=== PATIENT | male | born 1985 | race Caucasian/White ===

== ENCOUNTER 2018-07-19 07:50 | Day surgery (SDC) | payer BC ==
--- NOTE | 2018-07-19 07:56 | PDOC ---
History of Present Illness - General Chief Complaint: Pain Stated Complaint: BACK/ABD PAIN Time Seen by Provider: 07/19/18 07:55 History Source: Patient Exam Limitations: No Limitations - History of Present Illness Initial Comments: 33 yo M no significant PMH presents with 8 hours of abdominal discomfort, now radiating to L low back. No dysuria, hematuria, diarrhea, fever, vomiting. He was nauseous this morning, not at present. Pain started at a 3/10, increased to 8/10. He took tylenol without relief. He initially thought his pain was due to gas, but after passing gas and stool, still felt the pain. No prior similar history. No prior abdominal surgeries. Past History - Past Medical History Allergies/Adverse Reactions: Allergies Allergy/AdvReac Type Severity Reaction Status Date / Time No Known Allergies Allergy Verified 07/19/18 07:51 Home Medications: Ambulatory Orders Acetaminophen [Tylenol -] 1,000 mg PO ONCE PRN 07/19/18 Review of Systems - Review of Systems Able to Perform ROS?: Yes Comments:: GENERAL/CONSTITUTIONAL: No fever or chills. No weakness. HEAD, EYES, EARS, NOSE AND THROAT: No change in vision. No ear pain or discharge. No sore throat. CARDIOVASCULAR: No chest pain or shortness of breath. RESPIRATORY: No cough, wheezing, or hemoptysis. GASTROINTESTINAL: No vomiting, diarrhea or constipation. +Nausea. +Abd pain. GENITOURINARY: No dysuria, frequency, or change in urination. MUSCULOSKELETAL: No joint or muscle swelling or pain. No neck or back pain. SKIN: No rash NEUROLOGIC: No headache, vertigo, loss of consciousness, or change in strength/ sensation. ENDOCRINE: No increased thirst. No abnormal weight change. HEMATOLOGIC/LYMPHATIC: No anemia, easy bleeding, or history of blood clots. ALLERGIC/IMMUNOLOGIC: No hives or skin allergy. *Physical Exam - Physical Exam Comments: GENERAL: Awake, alert, and fully oriented, in no acute distress. Appears uncomfortable. HEAD: No signs of trauma EYES: PERRLA, EOMI, sclera anicteric, conjunctiva clear ENT: Auricles normal inspection, hearing grossly normal, nares patent, oropharynx clear without exudates. Dry mucosa NECK: Normal ROM, supple, no lymphadenopathy, JVD, or masses LUNGS: Breath sounds equal, clear to auscultation bilaterally. No wheezes, and no crackles HEART: Regular rate and rhythm, normal S1 and S2, no murmurs, rubs or gallops ABDOMEN: Soft, +RLQ tenderness, normoactive bowel sounds. No guarding, no rebound. No masses EXTREMITIES: Normal range of motion, no edema. No clubbing or cyanosis. No cords, erythema, or tenderness NEUROLOGICAL: Cranial nerves II through XII grossly intact. Normal speech, normal gait SKIN: Warm, Dry, normal turgor, no rashes or lesions noted. ED Treatment Course - LABORATORY CBC & Chemistry Diagram: 07/19/18 08:51 07/19/18 08:51 Medical Decision Making - Medical Decision Making 07/19/18 08:51 Pt with abd pain for past 8 hours, progressively worsening. With RLQ tenderness on exam. He took tylenol prior to arrival, declined additional pain meds. Also declined zofran, as he is not currently nauseated. Will await labs then plan for CT a/p. 07/19/18 12:46 CT with signs of acute appendicitis. Will d/w surgery field service consultant Dr. Bernard. 07/19/18 12:53 Case d/w Dr. Blanco, covering general surgery today. Will transfer to [facility] as there is no OR staff at [facility] today (weekend). Will keep patient NPO, start Zosyn, and give IV fluids. Will d/w hospitalist. Results and plan discussed with patient. He declined any pain medication at this point. 07/19/18 13:01 D/w SOLDERING INSPECTOR Sgroe, patient accepted to hospitalist service. *DC/Admit/Observation/Transfer Diagnosis at time of Disposition: Appendicitis Qualifiers: Appendicitis type: acute appendicitis Acute appendicitis type: unspecified acute appendicitis type Qualified Code(s): K35.80 - Unspecified acute appendicitis - Discharge Dispostion Condition at time of disposition: Stable Decision to Admit order: Yes - Referrals - Patient Instructions - Post Discharge Activity
[2018-07-19] MEDS ORDERED: SODIUM CHLORIDE 1,000 ML IV STA (08:03)
[2018-07-19 08:09] VITALS: BMI 22.3
[2018-07-19 08:41] LABS: PH,URINE 5.5 (4.5-8); URINE APPEARANCE Clear; URINE BILIRUBIN 1+ (NEGATIVE); URINE COLOR Amber; URINE GLUCOSE (UA) Negative (NEGATIVE); URINE KETONE Negative (NEGATIVE); URINE LEUK ESTERASE Negative (NEGATIVE); URINE NITRITE Negative (NEGATIVE); URINE UROBILINOGEN 0.2 (0.2-1.0)
[2018-07-19 08:42] LABS: URINE PROTEIN 1+ (NEGATIVE)
[2018-07-19 08:56] LABS: URINE WBC 0-1 (0-2)
[2018-07-19] MEDS ORDERED: FAMOTIDINE 20 MG/50 ML IVPB 20 MG/50 ML MG IVPB ONE ×2 (08:59→09:45)
[2018-07-19] MEDS ORDERED: FAMOTIDINE 20 MG/50 ML IVPB 50 ML IVPB ONE (09:01)
[2018-07-19 09:12] LABS: BASO % 0.2 % (0-2.0); EOS % 0.8 % (0-4.5); HEMATOCRIT 40.8 % (35.4-49); LYMPH % 5.5 % (8-40); MCH 30.4 pg (25.7-33.7); MCHC 34.4 g/dl (32.0-35.9); MEAN CELL VOLUME 88.5 fl (80-96); MEAN PLT VOLUME 8.6 fl (7.5-11.1); MONO % 6.5 % (3.8-10.2); PLATELET COUNT 236 K/MM3 (134-434); RBC 4.61 M/mm3 (4.00-5.60); RDW 11.5 % (11.9-15.9); WHITE BLOOD COUNT 11.4 K/mm3 (4.0-10.8)
[2018-07-19 09:20] LABS: ALBUMIN 4.3 g/dl (3.5-5.0); ALK PHOS 71 U/L (32-92); ANION GAP 8 MMOL/L (8-16); BILIRUBIN,TOTAL 1.6 mg/dl (0.2-1.0); BLOOD UREA NITROGEN 13 mg/dl (7-18); CHLORIDE 102 mmol/L (98-107); CO2 26 mmol/L (22-28); CREATININE 0.6 mg/dl (0.6-1.3); GLUCOSE,RANDOM 110 mg/dl (74-106); POTASSIUM 3.9 mmol/L (3.5-5.1); SGOT/AST 34 U/L (10-42); SGPT/ALT 34 U/L (10-40); SODIUM 136 mmol/L (136-145); TOT PROT 6.8 g/dl (6.4-8.3)
[2018-07-19 11:11] LABS: LIPASE 135 U/L (73-393)
[2018-07-19] MEDS ORDERED: PIPERACILLIN/TAZOB 3.375 GM 3.375 GM in DEXTROSE 5%-WATER - 50 ML IVPB ONE (12:52)
--- NOTE | 2018-07-19 12:59 | PN ---
Progress Note (short form) - Note Progress Note: surgery called by [facility] for acute appendicitis. booked surgery with [facility] nursing forming and assembling supervisor. I awaiting transfer of patient to [facility] since [facility] has no weekend surgery capability and awaiting OR availability at [facility]. I have requested to do the surgery as soon as possible.
[2018-07-19] MEDS ORDERED: SODIUM CHLORIDE 1,000 ML IV SCH ×3 (13:00→17:00)
[2018-07-19] MEDS ORDERED: PIPERACILLIN/TAZOBACTAM 3.375 GM VIAL IVPB ONE ×2 (13:56→21:16)
--- NOTE | 2018-07-19 14:28 | HP ---
CHIEF COMPLAINT: Abdominal pain and nausea PCP: Dr. Acosta HISTORY OF PRESENT ILLNESS: This is a 33 year old male with PMHx of borderline HTN who presented to the ED with abdominal pain and nausea since last night. The patient reports he ate dinner last night then around 10pm he began to have lower abdominal pain which then migrated to his back and then to his RLQ. He reports nausea but denies vomiting. He denies any diarrhea but reports soft stools. He denies any chest pain, shortness of breath, headache, dizziness, syncope, lower extremity edema/ weakness. ER course was notable for: (1) Temp 98.4, pulse 62, BP 155/91, resp 20, O2 99% on RA (2) WBC 11.4 (3) CTAP with acute appendicitis. No discrete abscess seen Recent Travel: denies PAST MEDICAL HISTORY: "borderline high blood pressure" PAST SURGICAL HISTORY: fractured left arm (age 7) Social History: Smoking: denies Alcohol: 1-2 glasses of wine 1-2 times per week Drugs: denies Family History: Allergies No Known Allergies Allergy (Verified 07/19/18 07:51) HOME MEDICATIONS: Home Medications Medication Instructions Recorded Acetaminophen [Tylenol -] 1,000 mg PO ONCE PRN 07/19/18 REVIEW OF SYSTEMS CONSTITUTIONAL: Absent: fever, chills, diaphoresis, generalized weakness, malaise, loss of appetite, weight change HEENT: Absent: rhinorrhea, nasal congestion, throat pain, throat swelling, difficulty swallowing, mouth swelling, ear pain, eye pain, visual changes CARDIOVASCULAR: Absent: chest pain, syncope, palpitations, irregular heart rate, lightheadedness , peripheral edema RESPIRATORY: Absent: cough, shortness of breath, dyspnea with exertion, orthopnea, wheezing, stridor, hemoptysis GASTROINTESTINAL: Lower abdominal pain that migrated overnight to RLQ with associated nausea. Absent: abdominal distension, vomiting, diarrhea, constipation, melena, hematochezia GENITOURINARY: Absent: dysuria, frequency, urgency, hesitancy, hematuria, flank pain, genital pain MUSCULOSKELETAL: Absent: myalgia, arthralgia, joint swelling, back pain, neck pain SKIN: Absent: rash, itching, pallor HEMATOLOGIC/IMMUNOLOGIC: Absent: easy bleeding, easy bruising, lymphadenopathy, frequent infections ENDOCRINE: Absent: unexplained weight gain, unexplained weight loss, heat intolerance, cold intolerance NEUROLOGIC: Absent: headache, focal weakness or paresthesias, dizziness, unsteady gait, seizure, mental status changes, bladder or bowel incontinence PSYCHIATRIC: Absent: anxiety, depression, suicidal or homicidal ideation, hallucinations. PHYSICAL EXAMINATION Vital Signs - 24 hr 07/19/18 07:51 Temperature 98.4 F Pulse Rate 62 Respiratory 20 Rate Blood Pressure 155/91 O2 Sat by Pulse 99 Oximetry (%) GENERAL: Awake, alert, and fully oriented, in no acute distress. HEAD: Normal with no signs of trauma. EYES: Pupils equal, round and reactive to light, extraocular movements intact, sclera anicteric, conjunctiva clear. No lid lag. EARS, NOSE, THROAT: Ears normal, nares patent, oropharynx clear without exudates. Moist mucous membranes. NECK: Normal range of motion, supple without lymphadenopathy, JVD, or masses. LUNGS: Breath sounds equal, clear to auscultation bilaterally. No wheezes, and no crackles. No accessory muscle use. HEART: Regular rate and rhythm, normal S1 and S2 without murmur, rub or gallop. ABDOMEN: + RLQ rebound tenderness. Soft, nontender, not distended, normoactive bowel sounds MUSCULOSKELETAL: Normal range of motion at all joints. No bony deformities or tenderness. No CVA tenderness. UPPER EXTREMITIES: 2+ pulses, warm, well-perfused. No cyanosis. No clubbing. No peripheral edema. LOWER EXTREMITIES: 2+ pulses, warm, well-perfused. No calf tenderness. No peripheral edema. NEUROLOGICAL: Cranial nerves II-XII intact. Normal speech. Gait not observed PSYCHIATRIC: Cooperative. Good eye contact. Appropriate mood and affect. SKIN: Warm, dry, normal turgor, no rashes or lesions noted, normal capillary refill. Laboratory Results - last 24 hr 07/19/18 07/19/18 07/19/18 08:15 08:51 08:51 WBC 11.4 H RBC 4.61 Hgb 14.0 Hct 40.8 MCV 88.5 MCH 30.4 MCHC 34.4 RDW 11.5 L Plt Count 236 MPV 8.6 Absolute Neuts (auto) 10.0 Neutrophils % 87.0 H Lymphocytes % 5.5 L Monocytes % 6.5 Eosinophils % 0.8 Basophils % 0.2 Sodium 136 Potassium 3.9 Chloride 102 Carbon Dioxide 26 Anion Gap 8 BUN 13 Creatinine 0.6 Creat Clearance w eGFR > 60 Random Glucose 110 H Calcium 9.0 Total Bilirubin 1.6 H AST 34 ALT 34 Alkaline Phosphatase 71 Total Protein 6.8 Albumin 4.3 Lipase 135 Urine Color Nikky Urine Appearance Clear Urine pH 5.5 Ur Specific [place] >= 1.030 H Urine Protein 1+ H Urine Glucose (UA) Negative Urine Ketones Negative Urine Blood 2+ H Urine Nitrite Negative Urine Bilirubin 1+ H Urine Urobilinogen 0.2 Ur Leukocyte Esterase Negative Urine RBC 5-8 Urine WBC 0-1 Assessment: This is a 33 year old male with PMHx of borderline HTN who presented to the ED with abdominal pain and nausea since last night. Plan: 1) Acute appendicitis - For OR today with Dr. Blanco - Awaiting transfer to [facility] - Morphine prn pain - IV fluids - Keep NPO: patient's last food was dinner last night - Received Zosyn in ED - F/u surgical consult 2) HTN - Patient reports hx of borderline HTN, but not on home medications. BP here above goal, however it may be elevated 2/2 pain. Will continue to monitor here, patient should follow-up with pcp upon discharge for further BP management 3) F/E/N: - NPO - IV fluids: NS @125/hr 4) Prophylaxis: - SCDs bilaterally - Hold all chemical DVT prophylaxis for surgery today 5) Dispo: - Patient likely for discharge after surgery CODE STATUS: FULL CODE Visit type - Emergency Visit Emergency Visit: Yes Care time: The patient presented to the Emergency Department on the above date and was hospitalized for further evaluation of their emergent condition. - New Patient This patient is new to me today: Yes Date on this admission: 07/19/18 - Critical Care Critical Care patient: No Hospitalist Screening - Colonoscopy Questionnaire Colonoscopy Questionnaire: Colonoscopy Questionnaire - Patient: 50 - 75 years old and never had a screening colonoscopy: No History of colon or rectal polyps, or CA: No History of IBD, Crohn's disease or UC: No History of abdominal radiation therapy as a child: No - Relative: 1 with colon or rectal CA, or polyps at age 60 or younger: Unknown Colon or rectal CA diagnosed at age 45 or younger: Unknown Multiple relatives with colon or rectal CA: Unknown - Outcome: Screening Result: Negative Screen
[2018-07-19 14:37] LABS: INR 1.19 (0.82-1.09); PROTHROMBIN TIME (PATIENT) 13.3 SEC (10.2-13.0)
[2018-07-19] MEDS ORDERED: ACETAMINOPHEN 1000 MG/100 ML VIAL (NON FORMULARY) IVPB ONE (15:13)
[2018-07-19] MEDS ORDERED: BUPIVACAINE HCL/PF 0.25% (2.5MG/ML) 10 ML VIAL ONE ×2 (15:35→15:36)
--- NOTE | 2018-07-19 16:52 | PN ---
Progress Note (short form) - Note Progress Note: surgery pt seen and examined now in [facility]. complains of less than one day right flank pain without vomiting. wbc elevated and ct shows retrocecal acute appendicitis. on exam mild rlq tenderness with right flank tenderness. 2+ blood in urine. Plan- 33m with abd pain, leukocytosis, rlq and flank tenderness, and ct showing acute appendicitis. I agree with admission. for surgery now.
[2018-07-19] MEDS ORDERED: PROPOFOL 20 ML ONE (16:53)
[2018-07-19] MEDS ORDERED: SUCCINYLCHOLINE CHLORIDE 200 MG/10 ML VIAL ONE (16:53)
[2018-07-19] MEDS ORDERED: fentaNYL CITRATE 250 MCG/5 ML VIAL ONE (16:53)
[2018-07-19] MEDS ORDERED: LIDOCAINE HCL/PF 2% SDV 5ML VIAL ONE (16:53)
[2018-07-19] MEDS ORDERED: ROCURONIUM BROMIDE 50 MG/5 ML VIAL ONE ×2 (16:54→17:06)
[2018-07-19] MEDS ORDERED: morphine CARPU-JECT 10 MG/1 ML DISP.SYRIN IVPB PRN (16:57)
[2018-07-19] MEDS ORDERED: ACETAMINOPHEN 325 MG TABLET (FP) PO PRN (16:57)
[2018-07-19] MEDS ORDERED: oxyCODONE HCL 5 MG TABLET PO PRN ×2 (16:57→17:48)
[2018-07-19] MEDS ORDERED: ONDANSETRON 4 MG/2 ML VIAL IVPUSH PRN ×2 (16:57→17:48)
--- NOTE | 2018-07-19 17:00 | OP ---
Operative Note - Note: Operative Date: 07/19/18 Pre-Operative Diagnosis: acute appendicitis Operation: laparoscopic appedectomy, lavage Findings: thickened,inflamed appendix Post-Operative Diagnosis: Same as Pre-op Surgeon: Rico Blanco Anesthesiologist/CINEMA OPERATOR: Rico Menendez Anesthesia: General Specimens Removed: appendix Estimated Blood Loss (mls): 10 Operative Report Dictated: Yes
[2018-07-19] MEDS ORDERED: GLYCOPYRROLATE 0.2 MG/1 ML VIAL ONE ×3 (17:32→18:23)
[2018-07-19] MEDS ORDERED: NEOSTIGMINE METHYLSULFATE 0.5 MG/ML - 10 ML MDV ONE (17:32)
--- NOTE | 2018-07-19 17:39 | CONS ---
DATE OF CONSULTATION: 07/19/2018 REASON FOR CONSULTATION: Acute appendicitis. REQUESTING PHYSICIAN: This is an emergency room consultation requested by the emergency room physician. The patient was subsequently seen and examined in the surgery holding area. BRIEF HISTORY: This is a 33-year-old male without a significant past medical history who presented to the [facility] emergency room complaining of less than one day of lower abdominal and flank pain. While there, he was noted to have right lower quadrant tenderness with an elevated white blood cell count. He went for a CAT scan of his abdomen and pelvis which was consistent with acute appendicitis. The appendix was noted to be in the retrocecal position. The patient was admitted to the hospital. I was notified and recommended surgery. The patient was then transferred to the [facility] because there is no operating room capability on weekends at [facility]. As soon as an operating room became available, he was seen and examined by me and prepared for surgery. PAST MEDICAL HISTORY: Significant for hypertension and anxiety that is not treated by medication. PAST SURGICAL HISTORY: Distant arm fracture surgery without complication. SOCIAL HISTORY: Positive for occasional alcohol consumption; negative for tobacco. FAMILY HISTORY: Negative for malignancy in the immediate family. ALLERGIES: He has no known drug allergies. HOME MEDICATIONS: He takes no medications. REVIEW OF SYSTEMS: General: Denies fatigue or malaise. Cardiac: Denies chest pain or palpitations. Respiratory: Denies shortness of breath or wheeze. Gastrointestinal: As stated in the HPI. Genitourinary: Denies dysuria. Musculoskeletal: Denies joint pain or joint swelling. Psychiatric: Denies depression or hearing voices. PHYSICAL EXAMINATION: General: This is a thin 33-year-old male in no distress. Vital signs: He is afebrile. His vital signs are stable. Head: Normocephalic. Sclerae anicteric. Neck: Supple. Chest: Clear. Abdomen: Soft. He has no surgical scars. His abdomen is not distended. He has mild right lower quadrant tenderness. He has right flank tenderness. Extremities: No edema. REVIEW OF LABORATORY DATA: His white blood cell count is elevated at 11.4. There is a shift. His chemistries are unremarkable. His total bilirubin is mildly elevated, consistent with his n.p.o. status. On review of his urinalysis, he has 2+ blood in his urine. IMAGING: He had a CAT scan of his abdomen and pelvis which is consistent with acute appendicitis with free fluid about the appendix. The appendix is described as a thick-walled, tubular structure that they described as being in the right lower quadrant but it appears to be retrocecal on my evaluation unofficially. ASSESSMENT: This is a 33-year-old male with right lower quadrant pain and tenderness, right flank tenderness, leukocytosis with a shift and a CAT scan showing acute appendicitis. Clinically, this is acute appendicitis. I agree with admission. I agree with dosing with antibiotic to cover for Escherichia coli and other gram negative as well as anaerobic and colonic bloa. The patient will move in the direction of surgery. The risks and benefits of surgery were explained to the patient in detail. These include but are not limited to the possibility of conversion to open, possible injury to viscera or bladder, the possibility of blood loss requiring blood transfusion, the possibility of staple line dehiscence, the possibility of infection, the possibility of suture hernia, the possibility of future obstruction. The multiple medical risks include but are not limited cardiac, neurologic, pulmonary and vascular complications and even . The patient understands these risks and is agreeable to surgery. He has also been offered medical management for his appendicitis and declined. He prefers the more definitive nature of surgery, the likely decreased length of stay, the ability to pathologically evaluate the appendix and to prevent future recurrence. The patient also mentions that he has a planned trip to [place] this week. I explained to him that he will be at increased risk of DVT and that the flight carries an increased risk of that as well. I advised him not to go. DO GERALDINE BETH/[id number]
[2018-07-19] MEDS ORDERED: PROMETHAZINE HCL 25 MG/1 ML VIAL IVPUSH PRN (17:48)
[2018-07-19] MEDS ORDERED: PIPERACILLIN/TAZOB 3.375 GM 3.375 GM in DEXTROSE 5%-WATER - 50 ML IVPB SCH (18:00)
[2018-07-19] MEDS ORDERED: LACTATED RINGERS SOLUTION 1,000 ML IV SCH (18:00)
[2018-07-19] MEDS ORDERED: DEXTROSE 5%-WATER - 50 ML IVPB ONE (21:16)
[2018-07-19] MEDS: PIPERACILLIN/TAZOB 3.375 GM 3.375 GM in DEXTROSE 5%-WATER - 50 ML IVPB SCH (21:55)
[2018-07-20] MEDS ORDERED: PIPERACILLIN/TAZOBACTAM 3.375 GM VIAL IVPB ONE ×2 (02:02→09:37)
[2018-07-20] MEDS ORDERED: DEXTROSE 5%-WATER - 50 ML IVPB ONE ×2 (02:03→09:37)
[2018-07-20] MEDS ORDERED: morphine SULFATE 4 MG/ML VIAL IVPB PRN (02:05)
[2018-07-20] MEDS: PIPERACILLIN/TAZOB 3.375 GM 3.375 GM in DEXTROSE 5%-WATER - 50 ML IVPB SCH ×2 (02:17→09:43)
[2018-07-20 07:46] LABS: HEMATOCRIT 35.9 % (35.4-49); HEMOGLOBIN 12.5 GM/dL (11.7-16.9); MCH 30.1 pg (25.7-33.7); MCHC 34.9 g/dl (32.0-35.9); MEAN CELL VOLUME 86.3 fl (80-96); MEAN PLT VOLUME 8.6 fl (7.5-11.1); PLATELET COUNT 206 K/MM3 (134-434); RBC 4.16 M/mm3 (4.00-5.60); RDW 12.6 % (11.9-15.9)
[2018-07-20 08:07] LABS: ALBUMIN 3.3 g/dl (3.4-5.0); ALK PHOS 62 U/L (45-117); ANION GAP 7 MMOL/L (8-16); BILIRUBIN,TOTAL 1.8 mg/dL (0.2-1.0); BLOOD UREA NITROGEN 6 mg/dL (7-18); CALCIUM 8.3 mg/dL (8.5-10.1); CHLORIDE 108 mmol/L (98-107); CO2 27 mmol/L (21-32); CREATININE 0.7 mg/dL (0.55-1.3); GLUCOSE,RANDOM 117 mg/dL (74-106); POTASSIUM 4.2 mmol/L (3.5-5.1); SGOT/AST 26 U/L (15-37); SGPT/ALT 31 U/L (13-61); SODIUM 142 mmol/L (136-145); TOT PROT 6.2 g/dl (6.4-8.2)
--- NOTE | 2018-07-20 08:19 | OP ---
DATE OF OPERATION: 07/19/2018 PREOPERATIVE DIAGNOSIS: Acute appendicitis. POSTOPERATIVE DIAGNOSIS: Acute appendicitis. PROCEDURE: Laparoscopic appendectomy and lavage. SURGEON: Rico Blanco DO NETWORK AND THREAT SUPPORT SPECIALIST: None. ANESTHESIOLOGIST: Rico Menendez MD (general) INTRAOPERATIVE FINDINGS: Retrocecal, inflamed, nonperforated appendix. SPECIMEN: Appendix. BLOOD LOSS: Minimal. DRAINS: None. COMPLICATIONS: None. DISPOSITION: Recovery room in stable condition. BRIEF HISTORY: This is a 33-year-old male who presented to [facility] with signs and symptoms of acute appendicitis. He was transferred to [facility] and presents now for surgery. He received Zosyn antibiotic in the emergency room. Woo catheter was inserted after anesthesia and the abdomen was then prepped and draped in sterile fashion. At this point, a vertical incision was made infraumbilical with a scalpel. This was carried down through skin and subcutaneous tissue. The fascia was then lifted with Angel clamp and incised vertically and the peritoneum was entered bluntly. Next, a 0 Vicryl stitch was placed across the fascial defect and used to secure the Son trocar. Pneumoperitoneum was then created, followed by insertion of a 5-mm, 30-degree laparoscope. Two 5-mm trocars were then placed, one suprapubic and one in the left lower quadrant. Attention was then turned toward the right lower quadrant. The cecum was identified. The appendix was noted to be retrocecal in nature. The ascending colon was mobilized off its lateral attachments as well as attachments of the terminal ileum. At this point, the appendix was teased off of its attachments to the lateral cecum. A window was made at the base of the appendix. The LigaSure device was used to divide the mesoappendix with multiple welds. The retroperitoneal attachments of the appendix were also divided. At this point, the EndoGIA purple load, 45-mm stapler was used to divide the appendix at its base in 1 firing. The staple line was inspected, was intact. There was no bleeding, no breaks, no signs of ischemia. The tissue appeared to be quite viable and able to hold the staple line. The appendix was then placed in a specimen bag, removed through the infraumbilical trocar site, and sent to pathology marked as specimen. At this point, a limited lavage was done; all return was clear. Trocars were removed under direct visualization and no bleeding was noted and pneumoperitoneum was released. At this point, the fascia at the infraumbilical trocar site was then closed with multiple interrupted 0 Vicryl sutures and the 3 skin incisions were closed with Biosyn and Dermabond dressing was placed. Overall, the patient tolerated the procedure well. There were no complications. Blood loss was minimal. DO GERALDINE BETH/[id number] MTDD
[2018-07-20] MEDS ORDERED: PANTOPRAZOLE SODIUM 40 MG VIAL IVPUSH SCH (10:00)
[2018-07-20] MEDS ORDERED: ENOXAPARIN NA (PORCINE) 40 MG/0.4 ML DISP.SYRIN SQ SCH (10:00)
[2018-07-20 11:25] VITALS: BP 115/67; PULSE 62; TEMP 98
--- NOTE | 2018-07-20 11:27 | DS ---
Physical Exam: Patient was discharged by surgery prior to evaluation. HOSPITAL COURSE: based upon EMR Date of Admission:07/19/18 Date of Discharge: 07/20/18 Pre hospital course This is a 33 year old male with PMHx of borderline HTN who presented to the ED with abdominal pain and nausea since last night. The patient reports he ate dinner last night then around 10pm he began to have lower abdominal pain which then migrated to his back and then to his RLQ. He reports nausea but denies vomiting. He denies any diarrhea but reports soft stools. He denies any chest pain, shortness of breath, headache, dizziness, syncope, lower extremity edema/ weakness. ER course was notable for: (1) Temp 98.4, pulse 62, BP 155/91, resp 20, O2 99% on RA (2) WBC 11.4 (3) CTAP with acute appendicitis. No discrete abscess seen Subsequent hospital course Operative Date: 07/19/18 Pre-Operative Diagnosis: acute appendicitis Operation: laparoscopic appedectomy, lavage Findings: thickened,inflamed appendix Post-Operative Diagnosis: Same as Pre-op Surgeon: Rico Blanco Patient seen and evaluated by Dr. Blanco on POD #1. Tolerating diet, voiding, ambulating, afebrile. Abdomen soft, not distended, incisions clean, minimal tenderness. Stable for discharge with prescription for augmentin. Minutes to complete discharge: 35 Discharge Summary Reason For Visit: BACK/ABD PAIN Current Active Problems Appendicitis (Acute) Condition: Improved - Instructions Diet, Activity, Other Instructions: a prescription has been sent to your pharmacy for augmentin which is an antibiotic. Take this medication as directed and be sure to finish all the medication. Follow any directions given to you by Dr. Blanco. Call Dr. Blanco's office to make a follow up appointment. Referrals: Rico Blanco MD [Staff Physician] - Disposition: HOME - Home Medications Comprehensive Discharge Medication List: Ambulatory Orders Acetaminophen [Tylenol -] 1,000 mg PO ONCE PRN 07/19/18 This patient is new to me today: Yes Date on this admission: 07/21/18 Emergency Visit: Yes Care time: The patient presented to the Emergency Department on the above date and was hospitalized for further evaluation of their emergent condition. Critical Care patient: No - Discharge Referral Referred to [facility] No
--- NOTE | 2018-07-20 15:37 | PN ---
Progress Note (short form) - Note Progress Note: surgery pt seen and examined this am. tolerating diet, voiding, and ambulating afebrile abd- soft, nd, incisions clean, minimal tenderness Plan- surgically stable for d/c. rec augmentin 875 bid. ok to shower. no lifting. should not travel to [place].
--- NOTE | 2018-07-22 15:17 | PATH ---
Surgical Pathology Report Patient Name: CELY POWERS [facility]. Rec. #: [id number] /Age/Gender: 1985 (Age: 33) / M Account: [id number] Location: [facility] SURGICAL Taken: 07/19/2018 Received: 07/21/2018 Reported: 07/22/2018 Physicians: Rico Blanco M.D. Specimen(s) Received APPENDIX Clinical History Acute appendicitis Final Diagnosis APPENDIX, APPENDECTOMY: ACUTE APPENDICITIS AND PERIAPPENDICITIS. Electronically Signed Daniel Pickens M.D. Gross Description Received in formalin, labeled "appendix," is a 5 cm. in length vermiform appendix with a stapled margin of resection and moderate attached fat. The serosa is jones adames with attached exudate. Sectioning reveals a focally dilated lumen. The wall of the appendix averages 0.1 cm. in thickness. Computer Assembler sections are submitted in one cassette. 07/21/2018 saudi07/21/2018
== END 2018-07-20 14:35 | disposition home or self-care (01) ==
LOC: FER 07:50 → JASU-SURG 12:56 → SUATTDRO 12:56 → JASU-SURG 16:25 → JSAMEDAYSX 16:29 → J7W 19:18 → JSAMEDAYSX 19:18 → JASU-SURG 07-20 14:35
PROVIDERS: ATTEND Nurse Practitioner Acute Care
PROC: 0DTJ4ZZ Resection of Appendix, Percutaneous Endoscopic Approach (ICD-10-PCS; principal; 2018-07-19 16:38)
DX: K35.80 Unspecified acute appendicitis (principal)
CPT/HCPCS: 36415; 74177-TC; 80053; 81003; 81015; 83690; 85025; 85027; 85610; 85730; 86850; 86900; 86901; 88304-TC; 94760; 99284-25; J0131; J7030